=== PATIENT | female | born 1995 | race African-American/Black ===

== ENCOUNTER 2020-01-18 08:40 | Observation (INO) | payer OTHER, SELFPAY ==
[2020-01-18 08:48] VITALS: TEMP 36.6
[2020-01-18 09:01] VITALS: BP 120/77; PULSE 87
[2020-01-18 09:16] VITALS: BP 115/66; PULSE 79
[2020-01-18 09:31] VITALS: BP 110/52; PULSE 79
[2020-01-18 09:46] VITALS: BP 109/69; PULSE 96
--- NOTE | 2020-01-18 10:06 | OBADM ---
This patient, Tiff Bass, admitted to the OB room Labor/Delivery/Recovery 105 for observation. Patient/family oriented to hospital policies and general routines including ID bracelet, bed and alarms, visiting hours, pain management, procedures, bathroom and other care routines, personal items, smoking policy, room service/diet, and visiting hours. Patient/Family are encouraged to report perceived risks to care and to ask questions if they do not understand what they are told or what they should do.
--- NOTE | 2020-02-09 20:38 | PM.OBTRLD ---
OB - Triage/Final Diagnosis Visit Information Date of evaluation: 01/18/20 Final Diagnosis (1) False labor: Code(s): O47.9 - False labor, unspecified Status: Acute
== END 2020-01-18 10:10 | disposition home or self-care (01) ==
PROVIDERS: Admitting Provider Obstetrics & Gynecology; Visit Provider Obstetrics & Gynecology
DX: O60.00 Preterm labor without delivery, unspecified trimester (principal); Z3A.00 Weeks of gestation of pregnancy not specified
CPT/HCPCS: G0378; G0379

== ENCOUNTER 2020-01-18 17:30 | Inpatient (IN) | payer OTHER, SELFPAY ==
[2020-01-18] VITALS (88 sets, daily range): BP systolic 74–136; BP diastolic 51–86; PULSE 60–133; RESP 16; TEMP 36.3–37; O2SAT 96–100; BMI 43.0
--- NOTE | 2020-01-18 17:30 | LDADM ---
This patient, Tiff Bass, was admitted to Labor/Delivery/Recovery 108 on 01/18/20 at 17:30. Plans for labor, pain management and were discussed with patient. Patient/family oriented to hospital policies and general routines including ID bracelet, bed and alarms, visiting hours, pain management, procedures, bathroom and other care routines, personal items, smoking policy, room service/diet and guest tray routines, security routines, and visiting hours. Patient/Family are encouraged to report perceived risks to care and to ask questions if they do not understand what they are told or what they should do. See OBIX for further documentation.
[2020-01-18] MEDS: LACTATED RINGERS 1,000 ML 999 ML IV CONT ×2 (18:35→19:09)
[2020-01-18 18:49] LABS: Basophils Percent Auto 0.2 % (0.2-1.2); Eosinophils Percent Auto 0.2 % (0-4.4); Hematocrit 36.7 % (37.0-47.0); Hemoglobin 12.2 g/dL (12.0-15.0); Immature Granulocyte Absolute 0.05 K/mm3 (0.00-0.031); Immature Granulocyte Percent A 0.6 % (0-0.5); Immature Platelet Fraction Pct 4.8 % (0.9-11.2); Lymphocytes Absolute Auto 1.06 K/mm3 (0.9-3.2); Lymphocytes Percent Auto 12.1 % (18.3-44.2); Mean Corpuscular HGB Conc 33.2 g/dl (32-36); Mean Corpuscular Hemoglobin 27.5 pg (26-34); Mean Corpuscular Volume 82.7 fl (80-100); Mean Platelet Volume 11.1 fl (7.4-10.4); Monocytes Absolute Auto 0.4 K/mm3 (0.1-0.6); Monocytes Percent Auto 4.2 % (2.6-8.5); Neutrophils Absolute Auto 7.3 K/mm3 (1.3-6.7); Neutrophils Percent Auto 82.7 % (45.5-73.1); Platelet Count Result 146 k/mm3 (150-375); Red Blood Count 4.44 M/mm3 (4.2-5.4); Red Cell Distribution Width 15.3 % (11.5-14.5); White Blood Count 8.8 K/mm3 (4.5-10.0)
--- NOTE | 2020-01-18 19:16 | WPDANESEPPF ---
Anes - Initial Pre Proc Eval Date/Time: 01/18/20 19:16 Surgeon: Neri Guerra MD Pre Op Diagnosis: contractions Patient Data Age: 24 Gender: F Height: 1.61 m Weight: 112 kg Last Vital Signs Temp 36.4 C L 01/18/20 19:07 Pulse 80 01/18/20 19:15 BP 129/75 01/18/20 19:15 Pulse Ox 99 01/18/20 19:11 Allergies Allergy/AdvReac Type Severity Reaction Status Date / Time No Known Allergies Allergy Verified 12/29/19 13:34 Home Medications Medication Instructions Recorded Confirmed Type PNV cmb#95-ferrous fumarate-FA 1 tablet PO DAILY 12/29/19 01/18/20 History [] Laboratory Tests 01/18/20 01/18/20 18:39 18:42 WBC 8.8 K/mm3 K/mm3 (4.5-10.0) RBC 4.44 M/mm3 M/mm3 (4.2-5.4) Hgb 12.2 g/dL g/dL (12.0-15.0) Hct 36.7 % L % (37.0-47.0) MCV 82.7 fl fl (80-100) MCH 27.5 pg pg (26-34) MCHC 33.2 g/dl g/dl (32-36) RDW 15.3 % H % (11.5-14.5) Plt Count 146 k/mm3 L k/mm3 (150-375) MPV 11.1 fl H fl (7.4-10.4) Immature Gran % (Auto) 0.6 % H % (0-0.5) Neut % (Auto) 82.7 % H % (45.5-73.1) Lymph % (Auto) 12.1 % L % (18.3-44.2) [place] % (Auto) 4.2 % % (2.6-8.5) Eos % (Auto) 0.2 % % (0-4.4) Baso % (Auto) 0.2 % % (0.2-1.2) Lymph # (Auto) 1.06 K/mm3 K/mm3 (0.9-3.2) [place] # (Auto) 0.4 K/mm3 K/mm3 (0.1-0.6) Eos # (Auto) 0.0 K/mm3 K/mm3 (0-0.3) Baso # (Auto) 0.0 K/mm3 K/mm3 (0.0-0.1) Abs Immat Gran (auto) 0.05 K/mm3 H K/mm3 (0.00-0.031) Absolute Neuts (auto) 7.3 K/mm3 H K/mm3 (1.3-6.7) Absolute Nucleated RBC 0.0 K/mm3 K/mm3 (0.0-0.012) Nucleated RBC % 0.0 % % (0.0-0.2) % Immature Plt Fraction 4.8 % % (0.9-11.2) RPR Pending Patient hx anesthesia problems: none Family hx anesthesia problems: none PMFSH Family History Family History Grandparent Diabetes mellitus Congestive heart failure Hypertension Depression Ovarian cancer Mother Diabetes mellitus Hypertension Depression Bipolar 1 disorder Social History Social History Smoking status: Never smoker Substance use: current Spiritual care concerns: No Anes - Eval Final PreProcedure Day of Procedure 01/18/20 19:16 Patient weight: obese Heart: regular rate and rhythm Lungs: clear to auscultation and normal air movement Airway: Mallampati scale class II Neurological: alert and oriented ASA classification: II Emergent: no Anesthetic plan: proceed Anesthesia type and monitoring: regional epidural and standard monitoring Informed Consent: The patient's anesthetic plan and its attendant risks and benefits were discussed with the patient/family/POA. Questions were solicited and answers provided to the satisfaction of the patient/family/POA.
[2020-01-18] MEDS: OXYTOCIN 30 UNITS/NS 500 ML 30 UNITS/500 ML BAG IV CONT (19:40)
--- NOTE | 2020-01-18 21:07 | WPDHPUPDATE1 ---
History and Physical Update Update Date/Time: 01/18/20 21:07 Presented in labor. AROM - moderately thick mec. / Reassuring status History and Physical has been reviewed, including an updated exam of the patient. There are NO changes in the patient's condition. Risks, benefits, and alternatives have been discussed and questions answered. Patient agrees to proceed with procedure.
--- NOTE | 2020-01-18 21:09 | P.PCNOB_ITS ---
OB - Delivery Note Procedure Delivery date: 01/18/20 Procedure: Intrapartal events: None Induction method: none Delivery augmentation: rupture of membranes and pitocin Delivery monitor: external FHT and external uterine Route of delivery: Laceration description: None Estimated blood loss (mL): 75 Anesthesia type: Epidural Disposition: floor [place] Baby Date of : 01/18/20 Time of : 20:55 Weeks of gestation at delivery: 39 Infant gender: Male Weight (pounds): 7 Weight (ounces): 8 presentation: vertex position: Left Occiput Transverse Placenta delivery description: Spontaneous cord vessel description: 3 Vessels score one minute: 8 score five minutes: 9
[2020-01-18] MEDS: OXYTOCIN 30 UNITS/NS 500 ML 30 UNITS/500 ML BAG 125 UNITS IV CONT (21:32)
[2020-01-18] MEDS: MISOPROSTOL 200 MCG TABLET 1000 MCG RECTAL (22:10)
[2020-01-18] MEDS: IBUPROFEN 600 MG TABLET PO (22:50)
[2020-01-18] MEDS: WITCH HAZEL 40 PADS 1 PAD TOPICAL (23:16)
[2020-01-18] MEDS: BENZOCAINE 20% AER SPR (*SP) 56 GM CAN 1 SPRAY TOPICAL (23:16)
[2020-01-19 01:36] LABS: Amphetamine Screen Urine Negative (Negative); Barbiturate Screen Urine Negative (Negative); Benzodiazepines Screen Urine Negative (Negative); Cannabinoid Screen Urine Positive (Negative); Cocaine Screen Urine Negative (Negative); Methadone Screen Urine Negative (Negative); Opiate Screen Urine Negative (Negative); Phencyclidine Screen Urine Negative (Negative)
[2020-01-19] MEDS: IBUPROFEN 600 MG TABLET PO ×3 (04:52→18:23)
[2020-01-19 05:14] LABS: Hematocrit 32.4 % (37.0-47.0); Hemoglobin 10.9 g/dL (12.0-15.0)
[2020-01-19 07:25] VITALS: BP 112/71; PULSE 72; RESP 18; TEMP 36.6
--- NOTE | 2020-01-19 08:06 | P.PNOB_ITS ---
OB - PN: Subj Subjective Date/time seen: 01/19/20 08:06 Patient comments: no complaints, pain well controlled and other (Lochia similar to menses) [place] baby status: doing well OB - PN: Obj Data Labs CBC & Chem 7: 01/19/20 04:59 Labs: Laboratory Results - last 24 hr 01/18/20 01/18/20 01/19/20 18:39 18:39 01:01 WBC 8.8 RBC 4.44 Hgb 12.2 Hct 36.7 L MCV 82.7 MCH 27.5 MCHC 33.2 RDW 15.3 H Plt Count 146 L MPV 11.1 H Immature Gran % (Auto) 0.6 H Neut % (Auto) 82.7 H Lymph % (Auto) 12.1 L [place] % (Auto) 4.2 Eos % (Auto) 0.2 Baso % (Auto) 0.2 Lymph # (Auto) 1.06 [place] # (Auto) 0.4 Eos # (Auto) 0.0 Baso # (Auto) 0.0 Abs Immat Gran (auto) 0.05 H Absolute Neuts (auto) 7.3 H Absolute Nucleated RBC 0.0 Nucleated RBC % 0.0 % Immature Plt Fraction 4.8 Urine Opiates Screen Negative Urine Methadone Screen Negative Ur Barbiturates Screen Negative Ur Phencyclidine Scrn Negative Ur Amphetamine Screen Negative U Benzodiazepines Scrn Negative Urine Cocaine Screen Negative U Cannabinoids Screen Positive A Blood Type O Positive Antibody Screen Negative 01/19/20 04:59 WBC RBC Hgb 10.9 L Hct 32.4 L MCV MCH MCHC RDW Plt Count MPV Immature Gran % (Auto) Neut % (Auto) Lymph % (Auto) [place] % (Auto) Eos % (Auto) Baso % (Auto) Lymph # (Auto) [place] # (Auto) Eos # (Auto) Baso # (Auto) Abs Immat Gran (auto) Absolute Neuts (auto) Absolute Nucleated RBC Nucleated RBC % % Immature Plt Fraction Urine Opiates Screen Urine Methadone Screen Ur Barbiturates Screen Ur Phencyclidine Scrn Ur Amphetamine Screen U Benzodiazepines Scrn Urine Cocaine Screen U Cannabinoids Screen Blood Type Antibody Screen OB - PN A/P Plan day: 1 (s/p vaginal delivery, doing well) Plan: routine care Time Spent With Patient Time: Total time spent is greater than 50% in coordination of care (as documented) at patient's floor/unit and/or counseling patient: Exam Const: General: no acute distress GI: Inspection: other (Fundus firm and nontender at umbilicus) GI Palp: Yes Soft to palpation and No Tenderness to palpation present (GI) Extrem: General: no edema
[2020-01-19] MEDS: ACETAMINOPHEN 325 MG TABLET 650 MG PO ×3 (08:39→23:25)
--- NOTE | 2020-01-19 10:32 | WPDANLDPN2 ---
Anes-Prog Note L&D Date/Time: 01/19/20 10:32 Comfortable throughout: labor and delivery Neuraxial method: epidural Epidural/Spinal procedure site: clean & non-tender Neuro status: Neuro function grossly intact. Cardiovascular status: normal Respiratory status: normal Airway patency: baseline Mental status: baseline Post-Op hydration status: normal Vital Signs: Last Vital Signs Temp 36.6 C 01/19/20 07:25 Pulse 72 01/19/20 07:25 Resp 18 01/19/20 07:25 BP 112/71 01/19/20 07:25 Pulse Ox 100 01/18/20 23:08 Pain score (VAS): Resting comfortably in bed on arrival for post-epidural evaluation. I/O: Intake & Output 01/18/20 01/19/20 01/19/20 23:59 07:59 15:59 Intake Total 1700 Output Total 355 Balance 1345 Post-procedural complaints: none Patient feedback: Patient satisfied with anesthetic care.
--- NOTE | 2020-01-19 10:48 | PC.NURSE ---
Patient transferred to post room #282 per stretcher from labor and delivery. Support person present. Oriented to unit, room, information board, rooming in, admission packet and security measures. Patient verbalizes understanding.
[2020-01-19 11:35] LABS: Rapid Plasma Reagin Non-Reactive (NonReactive)
[2020-01-19 18:25] VITALS: BP 113/52; PULSE 76; RESP 16; TEMP 36.9
--- NOTE | 2020-01-20 07:51 | PM.OBPNVD ---
OB - PN: Subj Subjective Date/time seen: 01/20/20 07:51 Patient comments: no complaints, pain well controlled and other (Lochia similar to menses) [place] baby status: doing well OB - PN: Obj Data Labs CBC & Chem 7: 01/19/20 04:59 Labs: Laboratory Results - last 24 hr 01/18/20 18:42 RPR Non-reactive OB - PN A/P Plan day: 2 (s/p vaginal delivery, doing well) Plan: routine care, discharge home and other (Follow up in office in 4 weeks) Time Spent With Patient Time: Total time spent is greater than 50% in coordination of care (as documented) at patient's floor/unit and/or counseling patient: Exam Const: General: no acute distress GI: Inspection: other (Fundus firm and nontender below umbilicus) GI Palp: Yes Soft to palpation and No Tenderness to palpation present (GI) Extrem: General: no edema
[2020-01-20] MEDS: DOCUSATE SODIUM 100 MG CAPSULE PO (07:54)
[2020-01-20] MEDS: TETANUS,DIPHTHERIA,AC PERTUSSIS ADULT (0.5 ML) BOOSTRIX IM (07:54)
[2020-01-20] MEDS: IBUPROFEN 600 MG TABLET PO (07:54)
[2020-01-20 08:25] VITALS: BP 128/83; PULSE 65; RESP 18; TEMP 36.8; O2SAT 100
[2020-01-21 11:12] VITALS: BP 133/84; PULSE 87; RESP 20; TEMP 36.6; O2SAT 99
--- NOTE | 2020-02-08 11:49 | PM.OBDSVD ---
DS: Admitting Diagnosis Admitting Diagnosis Admitting Diagnosis: Encounter for supervision of normal , unspecified, third trimester DS: Discharge Diagnosis Discharge Diagnosis (1) Term delivered: Code(s): O80 - Encounter for full-term uncomplicated delivery Status: Acute OB - DS: Summary OB Procedures : None OB Procedures Intrapartum: Spontaneous Vag Delivery OB Procedures: : None Peripartum Data Delivery Method: Natural Vaginal Time Spent with Patient Time attestation: Total time spent providing and/or coordinating discharge services: DS: Data Data Completed and Pending Completed studies during hospitalization: Pending at discharge 01/18/20 22:55 Surgical [PTH] Routine Discharge Plan Discharge Attending physician on discharge: Tsering Guzman Discharging Clinician: Tsering Guzman Patient Disposition: Home, Self-Care Activity: may shower and pelvic rest Diet: regular Discharge Instructions: Education: Mom and Baby Guide Given to: Patient Follow-Up: Call your delivering provider's office for an appointment to be seen in: 4 weeks Mom and baby should come to the [facility] for the follow-up appointment. Appointment Date/Time: Sunday01/21/2020 at 11:00 am Call [phone] if you are unable to keep your appointment time. BREAST CARE: 1. Wear a snug supportive bra. 2. For engorgement discomfort: Bottle Feeding: A. May apply ice packs PERINEAL CARE: 1. Until bleeding stops, use your constantin bottle after urinating 2. Change your pad frequently throughout the day 3. You may take sitz baths several times a day (fill your bathtub with warm water and soak for 20 minutes.) Do NOT bathe in the water 4. No tub baths until seen by your physician - You may shower ACTIVITY: 1. Rest as much as possible. 2. Do not exercise or lift anything heavier than your baby (such as laundry or other children.) 3. Avoid stairs or driving as much as possible. 4. Do not put anything into the vagina. No douching, tampons, or sexual activity until seen by physician. NOTIFY PHYSICIAN IF YOU HAVE ANY QUESTIONS OR IF ANY OF THE FOLLOWING SYMPTOMS OCCUR: 1. If your episiotomy or incision becomes red, swollen, or more painful than what you have experienced in the hospital. 2. If your vaginal bleeding becomes foul smelling. 3. If your vaginal bleeding becomes more heavy than a period or if your bleeding changes from pink to bright red. However, you may pass an occasional walnut-sized clot once or twice for the first week . 4. If you experience a sharp, shooting pain in you calves. 5. If you discover a hard, reddened area on your breast or if you experience flu-like symptoms. DIET: 1. Eat regular, well-balanced meals. 2. Drink plenty of fluids daily. If , drink to thirst. Follow-up/Referrals: Tsering Guzman MD [Physician] - 4 Weeks Discharge Medications: New ibuprofen 600 mg Tablet 600 mg PO Q6H PRN (Reason: Cramping) Qty: 60 RF: 0 hydrocodone-acetaminophen 5-325 mg Tablet 1 tab PO Q4H PRN (Reason: Pain Rated 4-6) Qty: 20 RF: 0 Continued PNV cmb#95-ferrous fumarate-FA [] 28 mg iron- 800 mcg Tablet 1 tablet PO DAILY RF: 0 Date of admission: 01/18/20 17:30 Primary Care Provider: PHYSICIAN,[employer] Admitting Provider: Neri Guerra Discharge Date/Time: 01/20/20 12:20 Attending physician on admission: Tsering Guzman
== END 2020-01-20 12:20 | disposition home or self-care (01) | DRG 560 ==
LOC: ANHLDR 18:33 → ANHOB2 01-20 07:53 → ANHLDR 01-22 12:41 → ANHOB2 01-22 12:41
PROVIDERS: Admitting Provider Obstetrics & Gynecology; Visit Provider Obstetrics & Gynecology
DX: O99.214 Obesity complicating childbirth (principal); Z37.0 Single live birth; Z3A.38 38 weeks gestation of pregnancy; E66.9 Obesity, unspecified; O77.0 Labor and delivery complicated by meconium in amniotic fluid
CPT/HCPCS: 36415; 80307; 85014; 85018; 85025; 85055; 86592; 86850; 86900; 86901; 88307; 90715; A9270; J2590; J2795; J7120

== ENCOUNTER 2021-03-02 06:22 | Inpatient (IN) | payer OTHER, SELFPAY ==
[2021-03-02] VITALS (129 sets, daily range): BP systolic 81–143; BP diastolic 38–106; PULSE 56–127; RESP 18; TEMP 36.2–36.9; O2SAT 96–100; BMI 43.9
--- NOTE | 2021-03-02 07:18 | LDADM ---
This patient, Tiff Bass, was admitted to Labor/Delivery/Recovery 109 on 03/02/21 at 06:22. Plans for labor, pain management and were discussed with patient. Patient/family oriented to hospital policies and general routines including ID bracelet, bed and alarms, visiting hours, pain management, procedures, bathroom and other care routines, personal items, smoking policy, room service/diet and guest tray routines, security routines, and visiting hours. Patient/Family are encouraged to report perceived risks to care and to ask questions if they do not understand what they are told or what they should do. See OBIX for further documentation.
[2021-03-02 07:21] LABS: Basophils Percent Auto 0.3 % (0.2-1.2); Eosinophils Absolute Auto 0.2 K/mm3 (0-0.3); Eosinophils Percent Auto 1.6 % (0-4.4); Hematocrit 31.4 % (37.0-47.0); Hemoglobin 10.3 g/dL (12.0-15.0); Immature Granulocyte Absolute 0.04 K/mm3 (0.00-0.031); Immature Granulocyte Percent A 0.4 % (0-0.5); Lymphocytes Absolute Auto 2.17 K/mm3 (0.9-3.2); Mean Corpuscular HGB Conc 32.8 g/dl (32-36); Mean Corpuscular Hemoglobin 25.4 pg (26-34); Mean Corpuscular Volume 77.3 fl (80-100); Mean Platelet Volume 11.2 fl (7.4-10.4); Monocytes Absolute Auto 0.6 K/mm3 (0.1-0.6); Monocytes Percent Auto 5.8 % (2.6-8.5); Neutrophils Absolute Auto 6.5 K/mm3 (1.3-6.7); Neutrophils Percent Auto 68.9 % (45.5-73.1); Platelet Count Result 173 k/mm3 (150-375); Red Blood Count 4.06 M/mm3 (4.2-5.4); Red Cell Distribution Width 15.6 % (11.5-14.5); White Blood Count 9.5 K/mm3 (4.5-10.0)
[2021-03-02] MEDS: OXYTOCIN 30 UNITS/NS 500 ML 30 UNITS/500 ML BAG IV CONT (07:32)
[2021-03-02] MEDS: LACTATED RINGERS 1,000 ML 125 ML IV CONT ×2 (07:32→18:28)
--- NOTE | 2021-03-02 07:34 | WPDOBADMIT ---
Obstetrics - Admit Note Admission Note: record reviewed. No pertinent additions to the history and/or any subsequent changes in the physical findings that are not consistent with the expected course of the were found. MIL, unable to AROM, plan pitocin Additions to the history and/or subsequent changes in the physical findings follow. None.
[2021-03-02 08:14] LABS: Amphetamine Screen Urine Negative (Negative); Barbiturate Screen Urine Negative (Negative); Benzodiazepines Screen Urine Negative (Negative); Cannabinoid Screen Urine Positive (Negative); Cocaine Screen Urine Negative (Negative); Methadone Screen Urine Negative (Negative); Opiate Screen Urine Negative (Negative); Phencyclidine Screen Urine Negative (Negative)
[2021-03-02 08:17] LABS: Rapid Plasma Reagin Non-Reactive (NonReactive)
--- NOTE | 2021-03-02 14:14 | WPDANESEPP ---
Anes - Eval Pre Procedure Procedure: labor epidural Date/Time: 03/02/21 14:14 Preop Diagnosis: labor pain Pre Op Diagnosis: induction Patient Data Age: 25 Gender: F Height: 1.63 m Weight: 116 kg Last Vital Signs Temp 36.3 C L 03/02/21 10:00 Pulse 73 03/02/21 14:00 BP 128/85 03/02/21 14:00 Allergies Allergy/AdvReac Type Severity Reaction Status Date / Time No Known Allergies Allergy Verified 02/09/21 14:43 Home Medications Medication Instructions Recorded Confirmed Type PNV cmb#95-ferrous fumarate-FA 1 tablet PO DAILY 12/29/19 03/02/21 History [] Laboratory Tests 03/02/21 03/02/21 03/02/21 07:10 07:10 07:10 WBC 9.5 K/mm3 K/mm3 (4.5-10.0) RBC 4.06 M/mm3 L M/mm3 (4.2-5.4) Hgb 10.3 g/dL L g/dL (12.0-15.0) Hct 31.4 % L % (37.0-47.0) MCV 77.3 fl L fl (80-100) MCH 25.4 pg L pg (26-34) MCHC 32.8 g/dl g/dl (32-36) RDW 15.6 % H % (11.5-14.5) Plt Count 173 k/mm3 k/mm3 (150-375) MPV 11.2 fl H fl (7.4-10.4) Immature Gran % (Auto) 0.4 % % (0-0.5) Neut % (Auto) 68.9 % % (45.5-73.1) Lymph % (Auto) 23.0 % % (18.3-44.2) [place] % (Auto) 5.8 % % (2.6-8.5) Eos % (Auto) 1.6 % % (0-4.4) Baso % (Auto) 0.3 % % (0.2-1.2) Lymph # (Auto) 2.17 K/mm3 K/mm3 (0.9-3.2) [place] # (Auto) 0.6 K/mm3 K/mm3 (0.1-0.6) Eos # (Auto) 0.2 K/mm3 K/mm3 (0-0.3) Baso # (Auto) 0.0 K/mm3 K/mm3 (0.0-0.1) Abs Immat Gran (auto) 0.04 K/mm3 H K/mm3 (0.00-0.031) Absolute Neuts (auto) 6.5 K/mm3 K/mm3 (1.3-6.7) Absolute Nucleated RBC 0.0 K/mm3 K/mm3 (0.0-0.012) Nucleated RBC % 0.0 % % (0.0-0.2) Urine Opiates Screen Urine Methadone Screen Ur Barbiturates Screen Ur Phencyclidine Scrn Ur Amphetamine Screen U Benzodiazepines Scrn Urine Cocaine Screen U Cannabinoids Screen RPR Non-reactive (NonReactive) Blood Type O Positive Antibody Screen Negative 03/02/21 07:10 WBC RBC Hgb Hct MCV MCH MCHC RDW Plt Count MPV Immature Gran % (Auto) Neut % (Auto) Lymph % (Auto) [place] % (Auto) Eos % (Auto) Baso % (Auto) Lymph # (Auto) [place] # (Auto) Eos # (Auto) Baso # (Auto) Abs Immat Gran (auto) Absolute Neuts (auto) Absolute Nucleated RBC Nucleated RBC % Urine Opiates Screen Negative (Negative) Urine Methadone Screen Negative (Negative) Ur Barbiturates Screen Negative (Negative) Ur Phencyclidine Scrn Negative (Negative) Ur Amphetamine Screen Negative (Negative) U Benzodiazepines Scrn Negative (Negative) Urine Cocaine Screen Negative (Negative) U Cannabinoids Screen Positive A (Negative) RPR Blood Type Antibody Screen Patient hx anesthesia problems: none Family hx anesthesia problems: none [facility] Family History Family History Grandparent Diabetes mellitus Congestive heart failure Hypertension Depression Ovarian cancer Mother Diabetes mellitus Hypertension Depression Bipolar 1 disorder Social History Social History Smoking status: Never smoker Substance use: current Last use: 02/07/21 Spiritual care concerns: No Exam Day of Procedure 03/02/21 14:14
--- NOTE | 2021-03-02 16:17 | PM.OBPNVD ---
OB - PN: Subj Subjective Date/time seen: 03/02/21 16:17 SVE 3/80/-2, AROM moderate amount of meconium stained fluid OB - PN: Obj Data Labs CBC & Chem 7: 03/02/21 07:10 Labs: Laboratory Results - last 24 hr 03/02/21 03/02/21 03/02/21 07:10 07:10 07:10 WBC 9.5 RBC 4.06 L Hgb 10.3 L Hct 31.4 L MCV 77.3 L MCH 25.4 L MCHC 32.8 RDW 15.6 H Plt Count 173 MPV 11.2 H Immature Gran % (Auto) 0.4 Neut % (Auto) 68.9 Lymph % (Auto) 23.0 [place] % (Auto) 5.8 Eos % (Auto) 1.6 Baso % (Auto) 0.3 Lymph # (Auto) 2.17 [place] # (Auto) 0.6 Eos # (Auto) 0.2 Baso # (Auto) 0.0 Abs Immat Gran (auto) 0.04 H Absolute Neuts (auto) 6.5 Absolute Nucleated RBC 0.0 Nucleated RBC % 0.0 Urine Opiates Screen Urine Methadone Screen Ur Barbiturates Screen Ur Phencyclidine Scrn Ur Amphetamine Screen U Benzodiazepines Scrn Urine Cocaine Screen U Cannabinoids Screen RPR Non-reactive Blood Type O Positive Antibody Screen Negative 03/02/21 07:10 WBC RBC Hgb Hct MCV MCH MCHC RDW Plt Count MPV Immature Gran % (Auto) Neut % (Auto) Lymph % (Auto) [place] % (Auto) Eos % (Auto) Baso % (Auto) Lymph # (Auto) [place] # (Auto) Eos # (Auto) Baso # (Auto) Abs Immat Gran (auto) Absolute Neuts (auto) Absolute Nucleated RBC Nucleated RBC % Urine Opiates Screen Negative Urine Methadone Screen Negative Ur Barbiturates Screen Negative Ur Phencyclidine Scrn Negative Ur Amphetamine Screen Negative U Benzodiazepines Scrn Negative Urine Cocaine Screen Negative U Cannabinoids Screen Positive A RPR Blood Type Antibody Screen OB - PN A/P Time Spent With Patient Time: Total time spent is greater than 50% in coordination of care (as documented) at patient's floor/unit and/or counseling patient:
--- NOTE | 2021-03-02 19:11 | PM.OBPNLAB ---
Pain Control Date/time seen: 03/02/21 19:11 SVE 4-5 cm/70/-2 IUPC placed
--- NOTE | 2021-03-02 23:40 | PM.OBPRVD ---
OB - Delivery Note Procedure Delivery date: 03/02/21 Procedure: vaginal delivery Intrapartal events: None Induction method: AROM and per pitocin protocol Delivery monitor: external FHT, external uterine and internal uterine Route of delivery: Laceration Description: None Specimen: Yes Quantitative Blood Loss (ml): 175 Anesthesia type: Epidural Disposition: floor Baby Date of : 03/02/21 Time of : 23:13 Weeks of gestation at delivery: 39 gender: Female Weight (pounds): 7 Weight (ounces): 13 presentation: vertex position: Left Occiput Anterior Placenta delivery description: Manual Removal cord vessel description: 3 Vessels, Nuchal Cord, Loose, Reduced and Clamped/Cut score one minute: 8 score five minutes: 9 Narrative: mother and baby skin to skin in stable condition
[2021-03-02] MEDS: OXYTOCIN 30 UNITS/NS 500 ML 30 UNITS/500 ML BAG 125 UNITS IV CONT (23:42)
[2021-03-03] VITALS (37 sets, daily range): BP systolic 102–137; BP diastolic 61–94; PULSE 60–116; RESP 14–18; TEMP 35.5–37; O2SAT 97–100
[2021-03-03] MEDS: ceFAZolin 2 GM/D5W 50 ML 2 GM/50 ML BAG IVPB (02:03)
[2021-03-03] MEDS: IBUPROFEN 600 MG TABLET PO ×3 (03:47→16:25)
[2021-03-03 04:47] LABS: Hematocrit 30.3 % (37.0-47.0); Hemoglobin 9.9 g/dL (12.0-15.0)
--- NOTE | 2021-03-03 08:15 | PM.OBPNVD ---
OB - PN: Subj Subjective Date/time seen: 03/03/21 08:15 Patient comments: no complaints, pain well controlled, incisional pain, tolerating diet and flatus present OB - PN: Obj Data Labs CBC & Chem 7: 03/03/21 04:38 Labs: Laboratory Results - last 24 hr 03/02/21 03/02/21 03/03/21 07:10 07:10 04:38 Hgb 9.9 L Hct 30.3 L RPR Non-reactive Blood Type O Positive Antibody Screen Negative OB - PN A/P Plan day: 1 Plan: routine care Comments: No problems, routine care Time Spent With Patient Time: Total time spent is greater than 50% in coordination of care (as documented) at patient's floor/unit and/or counseling patient: Exam Const: General: comfortable, no acute distress and alert Resp: Effort & Inspection: normal respiratory effort Auscultation: no crackles, no rales and no rhonchi Cardio: Rate: regular rate Heart sounds: no click, no murmurs and no rubs GI: Inspection: non-distended GI Palp: No Tenderness to palpation present (GI) Auscultation: normal bowel sounds Other: Incision - CDI Extrem: General: normal to inspection, no pedal edema and no calf tenderness
[2021-03-03] MEDS: MULTIVIT/MIN/PREN/FOL AC/IRON TABLET 1 TAB PO (10:14)
[2021-03-03] MEDS: POLYSACCHARIDE IRON COMPLEX 150 MG CAPSULE PO ×2 (10:14→17:51)
[2021-03-03] MEDS: DOCUSATE SODIUM 100 MG CAPSULE PO ×2 (16:25→17:51)
--- NOTE | 2021-03-03 16:58 | OBPPTRN ---
1640-Patient transferred to post room #279 via ambulation. Support person present. Oriented to unit, room, information board, rooming in, admission packet and security measures. Patient verbalizes understanding.
[2021-03-03] MEDS: ACETAMINOPHEN 325 MG TABLET 650 MG PO (19:47)
[2021-03-04] MEDS: IBUPROFEN 600 MG TABLET PO ×2 (01:41→10:41)
[2021-03-04] MEDS: ACETAMINOPHEN 325 MG TABLET 650 MG PO (05:32)
--- NOTE | 2021-03-04 07:30 | PC.NURSE ---
PT introductions made and plan of care discussed per post , pain management, bottle feeding, daily care activities and pending discharge to home. PT received such instructions per one to one discussion, mom baby care guide and demonstration. PT has no barriers to learning identified and both she and her mother were recipients of such instructions. PT verbalized understanding of such care.
--- NOTE | 2021-03-04 07:30 | PM.OBPNVD ---
OB - PN: Subj Subjective Date/time seen: 03/04/21 07:30 Patient comments: no complaints baby status: doing well OB - PN: Obj Data Labs CBC & Chem 7: 03/03/21 04:38 OB - PN A/P Plan day: 2 Plan: routine care and discharge home Time Spent With Patient Time: Total time spent is greater than 50% in coordination of care (as documented) at patient's floor/unit and/or counseling patient: Review of Systems Review of Systems: All systems reviewed & are unremarkable except as noted in HPI and below Exam Const: General: cooperative Orientation/consciousness: oriented to person Limitations: no limitations Psych: Affect: normal affect Attitude: cooperative Thought process: Normal thought process present Thought content: Yes Normal thought content present Insight: Good insight present (Psych) Judgement: Good judgement present (Psych)
--- NOTE | 2021-03-04 07:31 | PM.OBDSVD ---
DS: Admitting Diagnosis Admitting Diagnosis IOL OB - DS: Summary OB Procedures : None OB Procedures Intrapartum: Spontaneous Vag Delivery OB Procedures: : None Time Spent with Patient Time attestation: Total time spent providing and/or coordinating discharge services: DS: Data Data Completed and Pending Pending studies at discharge: Pending at discharge 03/03/21 02:44 Surgical [PTH] Routine Discharge Plan Discharge Attending physician on discharge: Neri Guerra Discharging Clinician: Vero Paige Patient Disposition: Home, Self-Care Activity: may shower Diet: regular Discharge Instructions: Education: Mom and Baby Guide Given to: Mother Follow-Up: Call your delivering provider's office for an appointment to be seen in: 4 Weeks Mom and baby should come to the [facility] for the follow-up appointment. Appointment Date/Time: March 04, 2021 at 2:30 pm What to expect at your follow-up visit: Blood Pressure Check Call [phone] if you are unable to keep your appointment time. BREAST CARE: * Wear a snug supportive bra. * For engorgement discomfort: Bottle Feeding: * May apply ice packs PERINEAL CARE: * Until bleeding stops, use your constantin bottle after urinating * Change your pad frequently throughout the day * You may take sitz baths several times a day (fill your bathtub with warm water and soak for 20 minutes.) Do NOT bathe in the water * No tub baths until seen by your physician - You may shower ACTIVITY: * Rest as much as possible. * Do not exercise or lift anything heavier than your baby (such as laundry or other children.) * Avoid stairs or driving as much as possible. * Do not put anything into the vagina. No douching, tampons, or sexual activity until seen by physician. NOTIFY PHYSICIAN IF YOU HAVE ANY QUESTIONS OR IF ANY OF THE FOLLOWING SYMPTOMS OCCUR: * If your perineum becomes red, swollen, or more painful than what you have experienced in the hospital. * If your vaginal bleeding becomes foul smelling. * If your vaginal bleeding becomes more heavy than a period or if your bleeding changes from pink to bright red. However, you may pass an occasional walnut-sized clot once or twice for the first week . * If you experience a sharp, shooting pain in you calves. * If you discover a hard, reddened area on your breast or if you experience flu-like symptoms. * If you have a fever of 100.4 or greater DIET: * Eat regular, well-balanced meals. * Drink plenty of fluids daily. If , drink to thirst. Patient Instructions: Antibiotic Form Stand Alone Forms: General Discharge Information Follow-up/Referrals: Vero Paige CNM [Certified Nurse Service Correspondent] - 4 Weeks Discharge Medications: Continued PNV [id number] [] 28 mg iron- 800 mcg Tablet 1 tablet PO DAILY RF: 0 Date of admission: 03/02/21 06:22 Primary Care Provider: PHYSICIAN,ENROBING MACHINE OPERATOR Admitting Provider: Neri Guerra Attending physician on admission: Neri Guerra Condition: Stable
[2021-03-04 07:50] VITALS: BP 126/88; PULSE 64; RESP 16; TEMP 36.8; O2SAT 100
--- NOTE | 2021-03-04 09:25 | PCCCNOTE ---
Care Coordination. Pt. referred to CC for pt. having positive UDS for marijuana. Baby was not tested. Met with pt. and her mother at bedside. Pt. reports plan to return home with her mother and her 3 other children. Pt. denies any resource needs. She reports having all necessary baby care items and family support. She is setup with WIC she reports in [place]. Pt. reports marijuana use only due to nausea with . Spoke with Karen De Luna at [facility] hotline who took pt.'s situation as information only Intake ID# [id number].
[2021-03-04 10:41] VITALS: PULSE 64; RESP 16; O2SAT 100
[2021-03-04] MEDS: DOCUSATE SODIUM 100 MG CAPSULE PO (10:42)
[2021-03-04] MEDS: POLYSACCHARIDE IRON COMPLEX 150 MG CAPSULE PO (10:42)
--- NOTE | 2021-03-04 13:00 | PC.NURSE ---
Patient was given the opportunity to view the discharge video Mother & Baby Care, The First Two Weeks and to ask questions. Patient declined viewing the video and has been given the mother/baby guide for home reference. PT received discharge instructions per protocol and verbalized understanding of such care.
--- NOTE | 2021-03-04 13:48 | PC.NURSE ---
PT discharged to home ambulatory accompanied by mother and taken to waiting car. Follow up appts confirmed
[2021-03-05 15:09] VITALS: BP 126/74; PULSE 90; RESP 20; TEMP 36.8; O2SAT 100
== END 2021-03-04 13:48 | disposition home or self-care (01) | DRG 560 ==
LOC: ANHLDR 06:26 → ANHOBPP 03-03 02:26 → ANHOB2 03-03 16:43
PROVIDERS: Advanced Practice Midwife; Admitting Provider Obstetrics & Gynecology; Visit Provider Obstetrics & Gynecology
DX: O77.0 Labor and delivery complicated by meconium in amniotic fluid (principal); Z37.0 Single live birth; Z3A.39 39 weeks gestation of pregnancy; O69.81X0 Labor and delivery complicated by cord around neck, without compression, not applicable or unspecified; O36.8330 Maternal care for abnormalities of the fetal heart rate or rhythm, third trimester, not applicable or unspecified
CPT/HCPCS: 36415; 80307; 85014; 85018; 85025; 86592; 86850; 86900; 86901; 88307; A9270; J0690; J2590; J2795; J7120

== ENCOUNTER 2021-03-09 21:45 | Outpatient (CLI) | payer OTHER, SELFPAY ==
[2021-03-09 22:00] VITALS: BP 135/86; PULSE 90
[2021-03-09 22:16] VITALS: BP 128/79; PULSE 87
[2021-03-09 22:30] VITALS: BP 132/88; PULSE 81
[2021-03-09 22:46] VITALS: BP 138/83; PULSE 78
[2021-03-09 23:12] LABS: Basophils Percent Auto 0.4 % (0.2-1.2); Eosinophils Absolute Auto 0.2 K/mm3 (0-0.3); Eosinophils Percent Auto 3.1 % (0-4.4); Hematocrit 34.8 % (37.0-47.0); Hemoglobin 11.2 g/dL (12.0-15.0); Immature Granulocyte Absolute 0.03 K/mm3 (0.00-0.031); Immature Granulocyte Percent A 0.4 % (0-0.5); Lymphocytes Absolute Auto 1.78 K/mm3 (0.9-3.2); Lymphocytes Percent Auto 23.4 % (18.3-44.2); Mean Corpuscular HGB Conc 32.2 g/dl (32-36); Mean Corpuscular Hemoglobin 25.2 pg (26-34); Mean Corpuscular Volume 78.4 fl (80-100); Mean Platelet Volume 10.3 fl (7.4-10.4); Monocytes Absolute Auto 0.4 K/mm3 (0.1-0.6); Monocytes Percent Auto 5.8 % (2.6-8.5); Neutrophils Absolute Auto 5.1 K/mm3 (1.3-6.7); Neutrophils Percent Auto 66.9 % (45.5-73.1); Platelet Count Result 279 k/mm3 (150-375); Red Blood Count 4.44 M/mm3 (4.2-5.4); Red Cell Distribution Width 15.2 % (11.5-14.5); White Blood Count 7.6 K/mm3 (4.5-10.0)
[2021-03-09 23:35] LABS: Alanine Aminotransferase 35 U/L (4-35); Albumin Level 4.1 g/dL (3.5-5.1); Alkaline Phosphatase 134 U/L (38-126); Anion Gap 9 mmol/L (8-16); Aspartate Amino Transferase 27 U/L (14-36); Bilirubin,Total 0.7 mg/dL (0.2-1.3); Blood Urea Nitrogen 10 mg/dL (7-17); Calcium 9.2 mg/dL (8.4-10.2); Carbon Dioxide 27 mmol/L (22-30); Chloride 103 mmol/L (98-107); Estimated Glomerular Filt Rate > 60; Glucose 87 mg/dL (65-110); Potassium 3.5 mmol/L (3.4-5.0); Sodium 139 mmol/L (137-145)
== END 2021-03-09 23:50 | disposition home or self-care (01) ==
LOC: ANHOBOP 21:50 → ANHOBPP 21:50
PROVIDERS: Advanced Practice Midwife; Visit Provider Obstetrics & Gynecology
DX: O13.9 Gestational [pregnancy-induced] hypertension without significant proteinuria, unspecified trimester (principal); Z3A.00 Weeks of gestation of pregnancy not specified
CPT/HCPCS: 36415; 80053; 85025; 99199; A9270

== ENCOUNTER → 2021-05-07 00:09 | Outpatient (CLI) | payer OTHER, SELFPAY ==
[2021-05-07 18:04] LABS: SARS-CoV-2 RNA PCR Negative
== END ==
PROVIDERS: Visit Provider Obstetrics & Gynecology
DX: Z01.812 Encounter for preprocedural laboratory examination (principal); Z20.822 Contact with and (suspected) exposure to COVID-19
CPT/HCPCS: C9803; U0003; U0005

== ENCOUNTER 2021-05-11 00:27 | Day surgery (SDC) | payer OTHER, SELFPAY ==
[2021-05-04 09:54] VITALS: BMI 43.5
[2021-05-11] VITALS (9 sets, daily range): BP systolic 98–110; BP diastolic 42–78; PULSE 76–96; RESP 14–20; TEMP 36.3–36.7; O2SAT 94–100
--- NOTE | 2021-05-11 11:58 | WPDHPUPDATE1 ---
History and Physical Update Update Date/Time: 05/11/21 11:58 History and Physical has been reviewed, including an updated exam of the patient. There are NO changes in the patient's condition. Risks, benefits, and alternatives have been discussed and questions answered. Patient agrees to proceed with procedure.
[2021-05-11] MEDS: LACTATED RINGERS 1,000 ML 30 ML IV CONT ×2 (12:02→13:39)
--- NOTE | 2021-05-11 12:04 | WPDANESEPPF ---
Anes - Initial Pre Proc Eval Procedure: Operation Date: 05/11/21 14:30 Proposed Procedures p Laparoscopic Tubal With Fulguration Of Oviducts - Neri Guerra MD Date/Time: 05/11/21 12:04 Surgeon: Neri Guerra MD Pre Op Diagnosis: Female Sterilization Patient Data Age: 26 Gender: F Height: 1.6 m Weight: 111.58 kg Allergies Allergy/AdvReac Type Severity Reaction Status Date / Time No Known Allergies Allergy Verified 05/04/21 09:54 Home Medications Medication Instructions Recorded Confirmed Type No Home Medications 05/04/21 05/04/21 History Patient hx anesthesia problems: none Family hx anesthesia problems: none Results Review: All pre-operative results and documents have been reviewed as part of the pre-operative evaluation. [facility] Family History Family History Grandparent Diabetes mellitus Congestive heart failure Hypertension Depression Ovarian cancer Mother Diabetes mellitus Hypertension Depression Bipolar 1 disorder Social History Social History Smoking status: Never smoker Alcohol intake: never Substance use: current Substance use type: marijuana Other substance usage details: SMOKE Last use: 05/03/21 Living arrangements: with family Spiritual care concerns: No Anes - Eval Final PreProcedure Day of Procedure 05/11/21 12:04 Patient weight: morbidly obese Heart: regular rate and rhythm Lungs: clear to auscultation Airway: Mallampati scale class II Neurological: alert and oriented Last oral intake: >/= 8 hours ASA classification: III Emergent: no Anesthetic plan: proceed Anesthesia type and monitoring: general ETT and standard monitoring Results Review: All pre-operative results and documents have been reviewed as part of the pre-operative evaluation. Informed Consent: The patient's anesthetic plan and its attendant risks and benefits were discussed with the patient/family/POA. Questions were solicited and answers provided to the satisfaction of the patient/family/POA.
[2021-05-11] MEDS: ACETAMINOPHEN 500 MG TABLET 1000 MG PO (12:10)
[2021-05-11] MEDS: KETOROLAC 15 MG/ML VIAL (*BKC) IV PUSH (12:11)
--- NOTE | 2021-05-11 13:06 | P.OP_ITS ---
Procedure Note - Detailed Date of Procedure 05/11/21 Pre-op Diagnosis Female Sterilization Post-op Diagnosis same Procedure Performed Laparoscopic bilateral tubal ligation Surgeon Neri Guerra MD Information Developer none Anesthesia general Indications Unwanted fertility Findings Normal pelvic anatomy Description of Procedure The patient was taken the operating room. She has prepped draped in the dorsal lithotomy position after induction of general anesthesia. A 5 mm left upper quadrant incision was made with a scalpel on the abdominal skin. A 5 mm trocar was inserted intra-abdominal cavity. A pneumoperitoneum was achieved. This was done under direct visualization of the scope. An infraumbilical trocar was placed identical fashion. The fallopian tubes were grasped with bipolar caute ry. They were completely cauterized. A 1.5 cm area of each fallopian tube was cauterized/desiccated. It was done bilaterally identical fashion. The pneumoperitoneum was reduced. The trocars removed. The skin was closed with subcuticular 4 Monocryl cover Dermabond. The patient tolerated the procedure well. She was taken to cover room stable condition. Sponge lap and needle counts were correct x2. Estimated Blood Loss 10 Drains No Packing No Pathology none sent Complications No immediate complications Condition stable Disposition PACU
[2021-05-11] MEDS: fentaNYL CITRATE INJ (*CRX) 100 MCG/2 ML VIAL 25 MCG IV PUSH ×3 (13:38→14:02)
[2021-05-11] MEDS: oxyCODONE HCL (*CRX) 5 MG TAB IR PO (14:51)
== END 2021-05-11 16:10 | disposition home or self-care (01) ==
PROVIDERS: Visit Provider Obstetrics & Gynecology
PROC: (CPT 58671; principal; 2021-05-11 14:30)
DX: Z30.2 Encounter for sterilization (principal); F12.90 Cannabis use, unspecified, uncomplicated; E66.01 Morbid (severe) obesity due to excess calories; Z68.41 Body mass index [BMI] 40.0-44.9, adult
CPT/HCPCS: 58670; A9270; J0330; J1100; J1170; J1885; J2250; J2405; J2704; J3010; J7120

== ENCOUNTER 2022-07-12 14:39 | Emergency (ER) | payer OTHER, SELFPAY ==
[2022-07-12 14:50] VITALS: BP 135/71; PULSE 87; RESP 18; TEMP 37.9; O2SAT 99
--- NOTE | 2022-07-12 14:57 | ED.URI ---
HPI - URI/Sore Throat General Chief Complaint: Upper Respiratory Infection Stated Complaint: Body Aches/Headache/Cough Time Seen by Provider: 07/12/22 15:33 Source: patient and RN notes reviewed Mode of arrival: ambulatory Limitations: no limitations History of Present Illness HPI Narrative: 27-year-old female presented for complaint of headache, body aches, sinus pressure/congestion, cough, fever/chills. onset 4 days. Endorses her son and sister tested positive for influenza. She denies shortness of breath, wheezing, vomiting, diarrhea. She is taking Tylenol and ibuprofen for symptoms. MD elicited complaint: cough Related Data Allergies Allergy/AdvReac Type Severity Reaction Status Date / Time No Known Allergies Allergy Verified 05/11/21 12:17 Review of Systems Review of Systems: ROS per HPI ON LICENSE OF [facility] Family History Family History Grandparent Diabetes mellitus Congestive heart failure Hypertension Depression Ovarian cancer Mother Diabetes mellitus Hypertension Depression Bipolar 1 disorder Social History Social History Smoking status: Never smoker Alcohol intake: never Substance use: current Substance use type: marijuana Other substance usage details: SMOKE Last use: 05/03/21 Spiritual care concerns: No Exam Narrative: GENERAL: Ill-appearing, nontoxic EYES: PERRLA, conjunctivae clear ENT: Mucous membranes moist. nasal congestion. TMs pearly pérez with dull light reflex bilaterally; no tragal tenderness. Oropharynx erythematous without lesions or exudate, no drooling, no hoarseness, no trismus, uvula midline. NECK: Supple. No lymphadenopathy CHEST: Clear to auscultation, breath sounds equal. No wheezing, rhonchi, rales, or stridor. No respiratory distress, speaks in full sentences. HEART: Regular rate and rhythm. No murmur heard. SKIN: Warm, dry, no rash. NEURO: Alert and oriented x3. PSYCH: Normal mood and affect Course Course Emergency Course: Patient is aware of diagnosis, understands and agrees to treatment plan. Anticipatory guidance given. Patient agrees to follow-up as directed and is aware of reasons to seek care at the emergency department. Portions of this record may have been created with voice recognition software Level of Care: Express Care Visit Vital Signs Vital signs: Vital Signs Temperature 100.3 F H 07/12/22 14:50 Pulse Rate 87 07/12/22 14:50 Respiratory Rate 18 07/12/22 14:50 Blood Pressure 135/71 07/12/22 14:50 Pulse Oximetry 99 07/12/22 14:50 Oxygen Delivery Room Air 07/12/22 14:50 Temperature 100.3 F H 07/12/22 14:50 Pulse Rate 87 07/12/22 14:50 Respiratory Rate 18 07/12/22 14:50 Blood Pressure 135/71 07/12/22 14:50 Pulse Oximetry 99 07/12/22 14:50 Oxygen Delivery Room Air 07/12/22 14:50 reviewed MDM - URI/Sore Throat MDM Narrative Medical decision making narrative: COVID and flu negative. Results reviewed with patient. Advised supportive measures and signs/symptoms to go to the ER. Pt is appropriate for outpt treatment and f/u. Differential Diagnosis Differential diagnosis: Likely upper respiratory infection, sinusitis and viral infection Lab Data Labs: Influenza A Screen Negative Reference Range: Negative Influenza B Screen Negative Reference Range: Negative Discharge Plan Discharge Clinical Impression: Viral infection Patient Disposition: Home, Self-Care Condition: Stable Instructions: Influenza (ED) Additional Instructions: Influenza and COVID negative You should avoid crowds/work until you are fever free for 24 hours without the use of fever reducing medications, or the symptoms are improved Rest. Drink plenty of fluids. Tylenol
== END 2022-07-12 15:45 | disposition home or self-care (01) ==
PROVIDERS: Emergency Provider Nurse Practitioner Family
DX: B34.9 Viral infection, unspecified (principal); Z20.822 Contact with and (suspected) exposure to COVID-19
CPT/HCPCS: 87426; 87804; 99213; C9803; G0463